=== PATIENT | female | born 1945 | race Hispanic/Latino ===

== ENCOUNTER 2024-10-28 05:44 | Day surgery (SDC) | payer OTHER ==
--- NOTE | 2024-10-25 09:16 | EKG ---
Test Date: 2024-10-25 Test Time: 10:02:53 Pat Name: YORDAN OSORIO Department: [facility] Room: Gender: F Bilingual Customer Service: [id number] : 1945 Requested By: RACHEAL NOLAN Order Number: [id number] Reading MD: Chandrakant Pollard Measurements Intervals [place] Rate: 61 P: 268 NV: 111 QRS: 173 QRSD: 179 T: -35 QT: 523 QTc: 527 Interpretive Statements A-V dual-paced complexes w/ some inhibition Biventricular paced rhythm Compared to ECG 07/13/2016 11:30:04 Sinus rhythm no longer present Left bundle-branch block no longer present Electronically Signed On 10-25-2024 14:09:25 WALLCOVERING HANGER by Chandrakant Pollard Please click the below link to view image of tracing.
[2024-10-25 09:31] LABS: BASOPHILS # (AUTO) 0.03 K/uL (0.00-0.20); BASOPHILS % (AUTO) 0.4 % (0.0-5.0); EOSINOPHILS # (AUTO) 0.15 K/uL (0.00-0.70); HEMATOCRIT 44.3 % (36-48); IMMATURE GRANULOCYTE ABSOLUTE 0.03 K/uL (0-1); LYMPHOCYTES % (AUTO) 27.1 % (21.0-51.0); MEAN CORPUSCULAR HEMOGLOBIN 29.7 pg (27.0-33.0); MEAN CORPUSCULAR HGB CONC 32.7 g/dL (32.0-36.0); MEAN CORPUSCULAR VOLUME 90.6 fL (79-99); MONOCYTES # (AUTO) 0.6 K/uL (0.1-1.0); MONOCYTES % (AUTO) 8.4 % (3.0-13.0); NEUTROPHILS # (AUTO) 4.6 K/uL (1.8-7.7); NEUTROPHILS % (AUTO) 61.7 % (40.0-77.0); PLATELET COUNT (AUTO) 175 K/uL (130-400); RED BLOOD CELL COUNT(AUTO) 4.89 MIL/uL (4.00-5.50); WHITE BLOOD COUNT (AUTO) 7.5 K/uL (4.8-10.8)
[2024-10-25 09:35] VITALS: BP 135/64; PULSE 64; RESP 18; TEMP 97.2
[2024-10-25 09:39] LABS: CREATININE 0.8 mg/dL (0.5-1.0)
[2024-10-25 09:43] LABS: INR 0.95 (0.85-1.15); PROTHROMBIN TIME 10.7 SEC (9.6-11.6)
[2024-10-25 09:44] LABS: PARTIAL THROMBOPLASTIN TIME 28.5 SEC (26.3-35.5)
--- NOTE | 2024-10-25 14:13 | NUR ---
report arminda hagan informed of redness and blisters with swelling to samir lower extremities. ok to proceed and have dr iniguez reeval lower extremities day of procedure
[~2024-10-28] VITALS: Ht 154.9 cm; Wt 125.2 kg
[~2024-10-28 05:44] MED LIST: DAPA10TA PO; FURO40TA5 PO; METO-408 PO; ROSU20TA98 PO; SACU1TAB PO; SPIR25TA6 PO
[2024-10-28 06:00] VITALS: BP 144/67; PULSE 82; RESP 18; TEMP 97.4
[2024-10-28] MEDS: 0.9%NACL 1000ML 1,000 ML IV SCH (06:43)
--- NOTE | 2024-10-28 07:30 | NUR ---
consult; dr. iniguez here to assess patients bilteral lower extremities - redness, swelling with blisters. procedure cancelled for today.
== END 2024-10-28 08:00 | disposition home or self-care (01) ==
LOC: DAH 05:44
PROVIDERS: ATTEND Internal Medicine Cardiovascular Disease
DX: Z45.02 Encounter for adjustment and management of automatic implantable cardiac defibrillator (principal); L53.9 Erythematous condition, unspecified; Z79.01 Long term (current) use of anticoagulants; Z53.8 Procedure and treatment not carried out for other reasons
CPT/HCPCS: 93005; 80048; 85025; 85610; 85730; 36415; J7030; A4215; A6251; A4222; A4221; A4663; A4216; A6258; A4606; A4223 ×3

== ENCOUNTER → 2024-11-08 | Outpatient (CLI) | payer OTHER ==
--- NOTE | 2024-11-12 15:50 | HMCSR ---
APPROVED REPORT Bilateral Lower Extremity Venous Study for DVT., Venous Competence. Indications Lower Extremity Edema: Right, i87.1,i87.2 Vein Imaging CFV (R): Normal flow, augmentation and compression. No evidence of DVT. 14.4mm 2306ms of reflux. SFJ (R): Normal flow, augmentation and compression. No evidence of DVT. FEM (R): Normal flow, augmentation and compression. No evidence of DVT. POP (R): Normal flow, augmentation and compression. No evidence of DVT. DFV (R): Normal flow, augmentation and compression. No evidence of DVT. PTV (R): Normal flow, augmentation and compression. No evidence of DVT. Peroneals (R): Normal flow, augmentation and compression. No evidence of DVT. CFV (L): Normal flow, augmentation and compression. No evidence of DVT. 12.8mm 1222ms of reflux. SFJ (L): Normal flow, augmentation and compression. No evidence of DVT. FEM (L): Normal flow, augmentation and compression. No evidence of DVT. POP (L): Normal flow, augmentation and compression. No evidence of DVT. DFV (L): Normal flow, augmentation and compression. No evidence of DVT. PTV (L): Normal flow, augmentation and compression. No evidence of DVT. Peroneals (L): Normal flow, augmentation and compression. No evidence of DVT. Technologist Impression Deep veins of the bilateral lower extremities appear patent and compressible without thrombus. Deep venous reflux noted in the RCFV and LCFV. Superficial venous insufficiency noted in the RSSV RGSV junction 7.3mm 0.0ms thigh 3.8mm 0.0ms knee 4.0mm 0.0ms calf 3.4mm 0.0ms RSSV prox 2.7mm 3306ms mid 2.9mm 0.0ms LGSV junction 7.8mm 0.0ms thigh 4.4mm 0.0ms knee 4.5mm 0.0ms calf 3.0mm 0.0ms LSSV prox 4.1mm 0.0ms mid 5.0mm 0.0ms
== END | disposition home or self-care (01) ==
LOC: SHCH 08:23
PROVIDERS: ATTEND Internal Medicine Cardiovascular Disease
DX: I87.2 Venous insufficiency (chronic) (peripheral) (principal); I87.1 Compression of vein
CPT/HCPCS: 93970

== ENCOUNTER 2024-12-17 05:40 | Day surgery (SDC) | payer OTHER ==
[2024-12-13 12:26] VITALS: BP 151/63; PULSE 74; RESP 19; TEMP 97.2
[2024-12-13 12:27] LABS: BASOPHILS # (AUTO) 0.04 K/uL (0.00-0.20); BASOPHILS % (AUTO) 0.6 % (0.0-5.0); EOSINOPHILS # (AUTO) 0.15 K/uL (0.00-0.70); EOSINOPHILS % (AUTO) 2.1 % (0.0-8.0); HEMATOCRIT 44.7 % (36-48); IMMATURE GRANULOCYTE ABSOLUTE 0.02 K/uL (0-1); LYMPHOCYTES # (AUTO) 1.8 K/uL (1.0-4.8); LYMPHOCYTES % (AUTO) 25.2 % (21.0-51.0); MEAN CORPUSCULAR HEMOGLOBIN 30.2 pg (27.0-33.0); MEAN CORPUSCULAR HGB CONC 33.1 g/dL (32.0-36.0); MEAN CORPUSCULAR VOLUME 91.2 fL (79-99); MONOCYTES # (AUTO) 0.5 K/uL (0.1-1.0); NEUTROPHILS # (AUTO) 4.7 K/uL (1.8-7.7); NEUTROPHILS % (AUTO) 64.8 % (40.0-77.0); PLATELET COUNT (AUTO) 182 K/uL (130-400); RED CELL DISTRIBUTION WIDTH 13.2 % (11.0-15.5); WHITE BLOOD COUNT (AUTO) 7.3 K/uL (4.8-10.8)
[2024-12-13 12:38] LABS: INR 0.94 (0.85-1.15); PROTHROMBIN TIME 10.6 SEC (9.6-11.6)
[2024-12-13 12:39] LABS: PARTIAL THROMBOPLASTIN TIME 27.7 SEC (26.3-35.5)
[2024-12-13 12:47] LABS: CREATININE 0.8 mg/dL (0.5-1.0); POTASSIUM 4.3 mmol/L (3.5-5.1)
--- NOTE | 2024-12-13 13:45 | EKG ---
[facility] Test Date: 2024-12-13 Test Time: 13:05:48 Pat Name: YORDAN OSORIO Department: [facility] Room: Gender: F Ordnance Keeper: [id number] : 1945 Requested By: RACHEAL NOLAN Order Number: [id number] Reading MD: Dash Womack Measurements Intervals [place] Rate: 69 P: 29 FL: 188 QRS: 171 QRSD: 144 T: 5 QT: 458 QTc: 493 Interpretive Statements Atrial-sensed ventricular-paced rhythm Compared to ECG 10/25/2024 10:02:53 No significant changes Electronically Signed On 12-13-2024 18:18:12 RAIL TRACTOR OPERATOR by Dash Womack Please click the below link to view image of tracing.
[~2024-12-17] VITALS: Ht 154.9 cm; Wt 127.1 kg
[~2024-12-17 05:40] MED LIST changes: -FURO40TA5 PO
[2024-12-17 06:07] VITALS: BP 143/67; PULSE 66; RESP 20; TEMP 97.2
[2024-12-17] MEDS: 0.9%NACL 1000ML 1,000 ML IV SCH (06:37)
[2024-12-17] MEDS ORDERED: ceFAZolin SODIUM 1 GM VIAL ONE ×2 (07:17→07:40)
[2024-12-17] MEDS ORDERED: LIDOCAINE HCL 1% MDV 50ML VIAL ONE (07:17)
[2024-12-17] MEDS ORDERED: BUPIvacaine/PF 0.25% 30ML VIAL IJ ONE (07:17)
[2024-12-17] MEDS ORDERED: MEPERIDINE-PF 50 MG/ML SYG ONE (07:45)
[2024-12-17] MEDS ORDERED: MIDAZOLAM HCL 1 MG/ML 2ML VIAL ONE ×2 (07:45→08:06)
[2024-12-17] MEDS ORDERED: BACITRACIN 1 EACH PACKET TP ONE (08:54)
[2024-12-17 09:20] VITALS: BP 105/56; PULSE 86; RESP 13; TEMP 97.1
--- NOTE | 2024-12-17 09:20 | NUR ---
DRESSING: DRESSING TO LEFT UPPER CHEST DRY/INTACT WITH NO ACTIVE BLEEDING PRESENT. NO REDNESS/SWELLING NOTED TO SURROUNDING AREA LEFT CHEST.
[2024-12-17] MEDS ORDERED: acetaMINOPHEN 500 MG TABLET PO PRN (09:30)
[2024-12-17] MEDS ORDERED: acetaMINOPHEN WITH coDEINE 1 TAB TAB PO PRN (09:30)
[2024-12-17 09:35] VITALS: BP 112/59; PULSE 107; RESP 12
--- NOTE | 2024-12-17 09:35 | NUR ---
DRESSING: DRESSING TO LEFT UPPER CHEST REMAINS DRY/INTACT WITH NO ACTIVE BLEEDING PRESENT. NO REDNESS/SWELLING NOTED TO SURROUNDING AREA LEFT CHEST.
--- NOTE | 2024-12-17 09:50 | NUR ---
DRESSING: DRESSING TO LEFT UPPER CHEST REMAINS DRY/INTACT WITH NO ACTIVE BLEEDING PRESENT. NO REDNESS OR SWELLING NOTED TO SURROUNDING AREA LEFT CHEST.
--- NOTE | 2024-12-17 10:05 | NUR ---
DRESSING: DRESSING TO LEFT UPPER CHEST REMAINS DRY AND INTACT WITH NO ACTIVE BLEEDING PRESENT. NO REDNESS/SWELLING NOTED TO SURROUNDING AREA LEFT CHEST.
--- NOTE | 2024-12-17 10:15 | NUR ---
DRESSING: DRESSING TO LEFT UPPER CHEST REMAINS DRY/INTACT WITH NO ACTIVE BLEEDING RESENT. NO REDNESS/SWELLING NOTED TO SURROUNDING AREA LEFT CHEST.
[2024-12-17 10:45] VITALS: BP 104/59; PULSE 85; RESP 12
--- NOTE | 2024-12-17 10:45 | NUR ---
DRESSING: DRESSING TO LEFT UPPER CHEST REMAINS DRY/INTACT WITH NO ACTIVE BLEEDING PRESENT. NO REDNESS/SWELLING NOTED TO SURROUNDING AREA LEFT CHEST.
[2024-12-17 11:15] VITALS: BP 102/51; PULSE 69; RESP 19
--- NOTE | 2024-12-17 11:15 | NUR ---
DRESSING: DRESSING TO LEFT UPPER CHEST REMAINS DRY/INTACT WITH NO ACTIVE BLEEDING PRESENT. NO REDNESS/SWELLING NOTED TO SURROUNDING AREA LEFT CHEST.
--- NOTE | 2024-12-17 11:35 | NUR ---
EKG: DR. NOLAN VIEWED EKG AND NO ORDERS GIVEN.
--- NOTE | 2024-12-17 11:52 | EKG ---
[facility] Test Date: 2024-12-17 Test Time: 11:46:55 Pat Name: YORDAN OSORIO [facility] Room: [facility] Gender: F Strike Operations Officer: [id number] : 1945 Requested By: RACHEAL NOLAN Order Number: [id number] Reading MD: Chandrakant Pollard Measurements Intervals [place] Rate: 86 P: 30 HI: 57 QRS: 267 QRSD: 155 T: -4 QT: 436 QTc: 521 Interpretive Statements Ventricular-paced rhythm Biventricular paced rhythm Compared to ECG 12/13/2024 13:05:48 Atrial-sensed ventricular-paced complex(es) or rhythm no longer present Electronically Signed On 12-18-2024 11:52:54 [employer]OCKSMITH by Chandrakant Pollard Please click the below link to view image of tracing.
[2024-12-17 11:55] VITALS: BP 122/63; PULSE 76; RESP 16; TEMP 97.2
--- NOTE | 2024-12-17 11:55 | NUR ---
dressing: dressing left upper chest remains dry/intact with no active bleeding present. no redness/swelling noted to surrounding area left chest.
== END 2024-12-17 12:00 | disposition home or self-care (01) ==
LOC: DAH 05:40
PROVIDERS: ATTEND Internal Medicine Cardiovascular Disease
DX: Z45.02 Encounter for adjustment and management of automatic implantable cardiac defibrillator (principal); I25.10 Atherosclerotic heart disease of native coronary artery without angina pectoris; E78.5 Hyperlipidemia, unspecified; I25.5 Ischemic cardiomyopathy; I11.0 Hypertensive heart disease with heart failure; I50.20 Unspecified systolic (congestive) heart failure; Z90.49 Acquired absence of other specified parts of digestive tract; Z87.891 Personal history of nicotine dependence; Z98.890 Other specified postprocedural states; Z79.899 Other long term (current) drug therapy
CPT/HCPCS: 80048; 85025; 85610; 85730; 36415; 93005 ×2; 33264; C1882; J0690 ×2; J7030; J0665; J2250 ×2; J2175; J3490; A4215; A4222; A4221; A4663; A4216; A4606; A4223 ×3; 99156; 99157

== ENCOUNTER → 2025-01-17 | Outpatient (CLI) | payer OTHER ==
[2025-01-17 12:11] LABS: CREATININE 0.9 mg/dL (0.5-1.0); POTASSIUM 4.4 mmol/L (3.5-5.1)
== END | disposition home or self-care (01) ==
LOC: LAB 11:01
PROVIDERS: ATTEND Internal Medicine Cardiovascular Disease
DX: I10 Essential (primary) hypertension (principal)
CPT/HCPCS: 36415; 80048; 83880